=== PATIENT | female | born 1985 | race Two or more races ===

== ENCOUNTER 2019-10-28 14:51 | Emergency (ER) | payer OTHER ==
[2019-10-28] MEDS ORDERED: DEXAMETHASONE 10 MG/ML VIAL PO STA (15:22)
[2019-10-28] MEDS ORDERED: CHERRY SYRUP 10 ML UDC PO ONE (15:22)
--- NOTE | 2019-10-28 15:39 | ED Physician Documentation ---
PD HPI HEENT - Stated complaint Stated Complaint: OBJECT IN THROAT - Chief complaint Chief Complaint: General - History obtained from History obtained from: Patient - History of Present Illness Timing - onset: How many days ago (2-3) Timing - duration: Days (2-3) Timing - details: Gradual onset, Still present Location: Throat Worsens: Swalllowing Associated symptoms: No: Fever, Congestion, Rhinorrhea, Trismus, Unable to swallow, Swollen nodes, Facial swelling, Headache, Cough Similar symptoms before: Has not had sx before Recently seen: Not recently seen - Additional information Additional information: 33-year-old female previously well has a sensation of a foreign body in her throat on the left side. She has had symptoms for about 2 to 3 days and she relates the symptoms as a pressure in the side of her throat. Review of Systems Constitutional: denies: Fever, Chills, Fatigue Eyes: denies: Decreased vision Ears: denies: Ear pain Nose: denies: Rhinorrhea / runny nose, Congestion Throat: reports: Swollen tonsils, Swallowed foreign body (??). denies: Sore throat Cardiac: denies: Chest pain / pressure, Palpitations Respiratory: denies: Dyspnea, Cough GI: denies: Abdominal Pain, Nausea, Vomiting : denies: Dysuria, Frequency Skin: denies: Rash, Abrasion (s) Musculoskeletal: reports: Neck pain. denies: Back pain, Extremity pain Neurologic: denies: Generalized weakness, Focal weakness, Numbness PD PAST MEDICAL HISTORY - Allergies Allergies/Adverse Reactions: Allergies Allergy/AdvReac Type Severity Reaction Status Date / Time amoxicillin Allergy Unknown Verified 10/28/19 14:57 PD ED PE NORMAL - Vitals Vital signs reviewed: Yes (tachy and hypertensive) - General General: Alert and oriented X 3, No acute distress, Well developed/nourished - HEENT HEENT: Atraumatic, PERRL, EOMI, Other (The tonsils are 2+ cryptic and exudative) - Neck Neck: Supple, no meningeal sign, No bony TTP - Cardiac Cardiac: RRR, No murmur - Respiratory Respiratory: No respiratory distress, Clear bilaterally - Derm Derm: Normal color, Warm and dry, No rash - Extremities Extremities: No deformity, No edema, No calf tenderness / cord - Neuro Neuro: Alert and oriented X 3, 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 No evidence of radiopaque foreign body. No airway compromise or prevertebral soft tissue swelling. Reversal of normal lordotic curve may be positional or may represent muscle spasm.), EMP read indepedently, See rad report PD MEDICAL DECISION MAKING - ED course Complexity details: reviewed results, re-evaluated patient, considered differential, d/w patient ED course: 33-year-old female with a sensation of pressure in the left side of her throat has cryptic exudative tonsils she does not feel ill otherwise she does have a foreign body sensation and there is no evidence of metallic foreign body on a plain film. I am not able to see a foreign body in the tonsil around it. There is no distortion of the tonsil to suggest a peritonsillar abscess. There is no pain to swallow. Just the pressure. There is evidence of muscle spasm in the neck on the plain film with the reversal of lordosis. She is administered decadron and we will have her follow up with ENT if she has persistent symptoms. Departure - Departure Disposition: 01 Home, Self Care Clinical Impression: Tonsillitis Condition: Stable Instructions: ED Tonsillitis Follow-Up: [facility] [Provider Group] Discharge Date/Time: 10/28/19 16:16
--- NOTE | 2019-10-28 15:44 | XRAY Report ---
PROCEDURE: Neck Soft Tissue INDICATIONS: ?FB in the left tonsil TECHNIQUE: 2 views of the neck were acquired. COMPARISON: None FINDINGS: Airway: The airway appears patent. No evidence of radiopaque foreign body. Soft tissues: Prevertebral soft tissues are normal in thickness. The epiglottis and aryepiglottic f olds appear normal. No soft tissue gas. Bones: No suspicious bony lesions. Visualized cervical spine is normally aligned. Reversal of dar l cervical lordotic curvature may indicate muscle spasm, or may be positional. Mild spondylitic mcmahon e. IMPRESSION: 1. No evidence radiopaque foreign body. No airway compromise or prevertebral soft tissue swelling. 2. Reversal of normal lordotic curve may be positional or may represent muscle spasm. Reviewed by: Christopher Stevens MD on 10/28/2019 3:42 PM PDT Approved by: Christopher Stevens MD on 10/28/2019 3:42 PM PDT Station ID: [id number]
[2019-10-28 16:17] VITALS: BP 126/83
== END 2019-10-28 16:16 | disposition home or self-care (01) ==
LOC: ED 14:51
DX: J03.90 Acute tonsillitis, unspecified (principal); M62.838 Other muscle spasm; M54.2 Cervicalgia
CPT/HCPCS: 70360; 99283; 99284; A9270